=== PATIENT | female | born 1995 | race Caucasian/White ===

== ENCOUNTER 2018-10-05 20:40 | Emergency (ER) | payer OTHER ==
[2018-10-05 22:32] LABS: ABS Basophils 0 10^3/ul (0-0.2); ABS Eosinophils 0.1 10^3/ul (0-0.6); ABS Lymphocytes 1.2 10^3/ul (1.0-4.8); ABS Monocytes 0.4 10^3/ul (0-0.8); ABS Neutrophils 2.3 10^3/ul (1.5-7.7); ABS Nucleated RBC 0 10^3/ul; Eosinophil % 3.7 %; Hematocrit 45 % (35-47); Hemoglobin 15.4 g/dl (12.0-16.0); Lymphocyte % 29.3 %; Mean Corpuscular HGB Conc 34 g/dl (31-36); Mean Corpuscular Hemoglobin 32 pg (27-31); Mean Corpuscular Volume 94 fL (80-97); Mean Platelet Volume 8.4 fL (7.4-10.4); Nucleated Red Blood Cells % 0.2; Platelet Count 196 10^3/ul (150-450); Red Blood Count 4.79 10^6/ul (4.00-5.40); Red Cell Distribution Width 13 % (10.5-15)
[2018-10-05] MEDS ORDERED: NS 0.9% 1000 ML** 1,000 ML IV ONE (22:35)
[2018-10-05 22:50] LABS: ALT 13 U/L (7-52); Albumin 4.6 g/dL (3.2-5.2); Albumin/Globulin Ratio 1.6 (1-3); Alkaline Phosphatase 40 U/L (34-104); BUN/Creatinine Ratio 14.1 (8-20); Blood Urea Nitrogen 10 mg/dL (6-24); C Reactive Protein 24.77 mg/L (<8.01); CO2 Carbon Dioxide 28 mmol/L (22-32); Calcium 9.7 mg/dL (8.6-10.3); Chloride 102 mmol/L (101-111); EGFR African American 121.4 (>60); EGFR Non-African American 100.3 (>60); Globulin 2.9 g/dL (2-4); Glucose 92 mg/dL (70-100); Sodium 135 mmol/L (135-145); Total Protein 7.5 g/dL (6.4-8.9)
[2018-10-05 22:56] LABS: HCG Pregnancy < 0.60 mIU/mL
[2018-10-05 23:06] LABS: Anion Gap 5 mmol/L (2-11); Potassium 4.2 mmol/L (3.5-5.0)
[2018-10-05 23:20] LABS: AST 27 U/L (13-39)
[2018-10-05] MEDS ORDERED: Ketorolac INJ* 30 MG/ML 1 ML VIAL IV PUSH ONE (23:33)
--- NOTE | 2018-10-06 00:10 | ED ---
GI/ HPI - HPI Summary HPI Summary: 23-year-old female presenting with abdominal pain for the past 4 days. She states that it is in her epigastric and periumbilical region. She says that does not radiates anywhere. She states it is a crampy type pain. it started with constipation and is now having diarrhea. she admits to nausea but no vomiting. She states she's felt like she's had a fever. No chest pain or shortness breath. 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 She she states she has no medical conditions. No blood in her stool. She states she has no appetite. She is able to keep food down just doesn't feel like eating. No previous surgeries. no abnormal vaginal discharge. no urinary symptoms. - History of Current Complaint Chief Complaint: EDAbdPain Time Seen by Provider: 10/05/18 22:19 Stated Complaint: ABD PAIN Pain Intensity: 6 - Allergy/Home Medications Allergies/Adverse Reactions: Allergies Allergy/AdvReac Type Severity Reaction Status Date / Time No Known Allergies Allergy Verified 10/05/18 20:46 PMH/Surg Hx/FS Hx/Imm Hx Endocrine/Hematology History: Denies: Hx Anticoagulant Therapy Respiratory History: Denies: Hx Asthma Infectious Disease History: No Infectious Disease History: Denies: Traveled Outside the [place] in Last 30 Days - Family History Known Family History: Positive: Non-Contributory - Social History Alcohol Use: None Substance Use Type: Reports: None Smoking Status (MU): Never Smoked Tobacco Review of Systems Negative: Fever Negative: Chest Pain Negative: Shortness Of Breath Positive: Abdominal Pain, Diarrhea, Nausea. Negative: Vomiting All Other Systems Reviewed And Are Negative: Yes Physical Exam Triage Information Reviewed: Yes Vital Signs On Initial Exam: Initial Vitals Temp Pulse Resp BP Pulse Ox 97.9 F 82 16 125/84 96 10/05/18 20:41 10/05/18 20:41 10/05/18 20:41 10/05/18 20:41 10/05/18 20:41 Vital Signs Reviewed: Yes Appearance: Positive: Well-Appearing Skin: Positive: Warm, Dry Head/Face: Positive: Normal Head/Face Inspection Eyes: Positive: Normal, EOMI, GOPAL, Conjunctiva Clear ENT: Positive: Normal ENT inspection, Pharynx normal, TMs normal Respiratory/Lung Sounds: Positive: Clear to Auscultation, Breath Sounds Present Cardiovascular: Positive: Normal, RRR Abdomen Description: Positive: Soft, Other: - tenderness epigastric and periumblicial, neg rovsings, no rebound, nontender RLQ. Negative: McBurney's Point Tenderness Bowel Sounds: Positive: Present Musculoskeletal: Positive: Normal Neurological: Positive: Normal Psychiatric: Positive: Normal Diagnostics - Vital Signs Vital Signs Temp Pulse Resp BP Pulse Ox 10/05/18 20:41 97.9 F 82 16 125/84 96 - Laboratory Lab Results: Lab Results 10/05/18 10/05/18 Range/Units 22:24 22:24 WBC 4.0 (3.5-10.8) 10^3/ul RBC 4.79 (4.00-5.40) 10^6/ul Hgb 15.4 (12.0-16.0) g/dl Hct 45 (35-47) % MCV 94 (80-97) fL MCH 32 H (27-31) pg MCHC 34 (31-36) g/dl RDW 13 (10.5-15) % Plt Count 196 (150-450) 10^3/ul MPV 8.4 (7.4-10.4) fL Neut % (Auto) 57.0 % Lymph % (Auto) 29.3 % Becker % (Auto) 9.3 % Eos % (Auto) 3.7 % Baso % (Auto) 0.7 % Absolute Neuts (auto) 2.3 (1.5-7.7) 10^3/ul Absolute Lymphs (auto) 1.2 (1.0-4.8) 10^3/ul Absolute Monos (auto) 0.4 (0-0.8) 10^3/ul Absolute Eos (auto) 0.1 (0-0.6) 10^3/ul Absolute Basos (auto) 0 (0-0.2) 10^3/ul Absolute Nucleated RBC 0 10^3/ul Nucleated RBC % 0.2 Sodium 135 (135-145) mmol/L Potassium 4.2 (3.5-5.0) mmol/L Chloride 102 (101-111) mmol/L Carbon Dioxide 28 (22-32) mmol/L Anion Gap 5 (2-11) mmol/L BUN 10 (6-24) mg/dL Creatinine 0.71 (0.51-0.95) mg/dL Est GFR ( Amer) 121.4 (>60) Est GFR (Non-Af Amer) 100.3 (>60) BUN/Creatinine Ratio 14.1 (8-20) Glucose 92 (70-100) mg/dL Calcium 9.7 (8.6-10.3) mg/dL Total Bilirubin 0.70 (0.2-1.0) mg/dL AST 27 (13-39) U/L ALT 13 (7-52) U/L Alkaline Phosphatase 40 (34-104) U/L C-Reactive Protein 24.77 H (<8.01) mg/L Total Protein 7.5 (6.4-8.9) g/dL Albumin 4.6 (3.2-5.2) g/dL Globulin 2.9 (2-4) g/dL Albumin/Globulin Ratio 1.6 (1-3) Lipase 43 (11.0-82.0) U/L Beta HCG, Quant < 0.60 mIU/mL Result Diagrams: 10/05/18 22:24 10/05/18 22:24 Lab Statement: Any lab studies that have been ordered have been reviewed, and results considered in the medical decision making process. - Ultrasound No standard instances Ultrasound Interpretation Completed By: Radiologist Summary of Ultrasound Findings: IMPRESSION: Nonvisualized appendix with no secondary findings to suggest appendicitis. Re-Evaluation - Re-Evaluation First Eval Re-Evaluation Time: 00:10 Comment: nontender over RLQ, discussed that has classmates with similiar symptoms GIGU Course/Dx - Course Course Of Treatment: 23-year-old female presenting with abdominal pain for the past 4 days. She states that it is in her epigastric and periumbilical region. She says that does not radiates anywhere. She states it is a crampy type pain. it started with constipation and is now having diarrhea. she admits to nausea but no vomiting. She states she's felt like she's had a fever. No chest pain or shortness breath. 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 She she states she has no medical conditions. No blood in her stool. She states she has no appetite. She is able to keep food down just doesn't feel like eating. No previous surgeries. On exam tenderness periumbilically and epigastric region. No rebound. Nontender over right lower quadrant. Gallbladder ultrasound normal. Appendix not visualized. wbc normal. CRP is elevated. Patient contacted peers and they're having similar symptoms. Discussed could be the cryptosporidium but patient is unable to provide us a stool sample to test for such. We'll treat supportively. Warned if symptoms change return to ED. patient no uti symptoms now and wants to hold on antibiotic till culture. Patient understands agrees plan. - Diagnoses Differential Diagnoses - Female: Cholecystitis, Gastroenteritis (Viral), Gastroenteritis (Bacterial) Provider Diagnoses: Abdominal pain, Diarrhea Discharge - Sign-Out/Discharge Documenting (check all that apply): Patient Departure - Discharge Plan Condition: Good Disposition: HOME Patient Education Materials: Abdominal Pain (ED) Referrals: No Primary Care Phys,NOPCP [Primary Care Provider] - Additional Instructions: Can take Zofran every 6 hours as needed for nausea Drink small amounts of fluid as tolerated When able to eat follow BRAT diet: Bananas, rice, applesauce, toast Take ibuprofen or Tylenol for pain as needed every 6 hours Follow up with primary within 5 days Return to ED if develop fever that does not respond to Tylenol or ibuprofen, severe abdominal pain, or any new or worsening symptoms - Billing Disposition and Condition Condition: GOOD Disposition: Home
[2018-10-06] MEDS ORDERED: O ndansetron ODT 4MG 5TAB PRPK 4 MG PAK PO ONE (00:30)
[2018-10-06 00:39] LABS: Urine Appearance Cloudy; Urine Bacteria 1+ (Absent); Urine Bilirubin Negative (Negative); Urine Blood Negative (Negative); Urine Color Yellow; Urine Glucose Negative (Negative); Urine Ketones Trace (Negative); Urine Nitrite Negative (Negative); Urine Protein Negative (Negative); Urine Red Blood Cell Trace(0-2/hpf) (Absent); Urine Specific Gravity 1.004 (1.010-1.030); Urine Squamous Epithelial Cell Present (Absent); Urine Urobilinogen Negative (Negative); Urine White Blood Cell 3+(>20/hpf) (Absent)
[2018-10-06 00:47] VITALS: BP 111/71
[2018-10-06] MEDS ORDERED: Ondansetron ODT TAB* 4 MG PO ONE (01:00)
== END 2018-10-06 00:40 | disposition home or self-care (01) ==
LOC: ED 20:40
DX: R10.13 Epigastric pain (principal); R19.7 Diarrhea, unspecified; R10.11 Right upper quadrant pain
CPT/HCPCS: 36415; 76705; 80053; 81003; 81015; 83690; 84702; 85025; 86140; 87086; 96361; 96374; 99282; A9270-GY; J1885

== ENCOUNTER 2018-10-13 09:06 | Emergency (ER) | payer OTHER ==
[2018-10-13] MEDS ORDERED: Ketorolac INJ* 30 MG/ML 1 ML VIAL IV PUSH ONE (09:18)
--- NOTE | 2018-10-13 09:19 | ED ---
HPI Chest Pain - HPI Summary HPI Summary: This patient is a 23 year old F presenting to [facility] with a chief complaint of upper abdominal pain [employer]. Earlier this morning she said the pain radiated to her chest and after 15 mins she called EMS. She said the pain did not resolve but has lessened in severity. She rates the chest pain 7/10 in severity and that it is a sharp pain. She said she did not have a cold, but was at [facility] last week for cryptosporidium and has since resolved. She denies nausea and vomiting. She reports SOB. She states her LNMP was 3 weeks ago. - History of Current Complaint Chief Complaint: EDChestPainROMI Hx Obtained From: Patient Onset/Duration: Started Minutes Ago Timing: Constant, Lasting Minutes Initial Severity: Moderate Current Severity: Moderate Pain Intensity: 7 Pain Scale Used: 0-10 Numeric Chest Pain Location: Discrete at:, Upper Sternal Character: Sharp/Stabbing Aggravating Factor(s): Nothing Associated Signs and Symptoms: Positive: Abdominal Pain - Allergy/Home Medications Allergies/Adverse Reactions: Allergies Allergy/AdvReac Type Severity Reaction Status Date / Time No Known Allergies Allergy Verified 10/13/18 09:12 Home Medications: Home Medications Escitalopram (NF) [Lexapro 10 mg (NF)] 10 mg PO DAILY 10/13/18 [History Confirmed 10/13/18] Lubiprostone (NF) [Amitiza (NF)] 8 - 16 mcg PO BID 10/13/18 [History Confirmed 10/13/18] PMH/Surg Hx/FS Hx/Imm Hx Endocrine/Hematology History: Denies: Hx Anticoagulant Therapy Respiratory History: Denies: Hx Asthma Infectious Disease History: No Infectious Disease History: Denies: Traveled Outside the [place] in Last 30 Days - Family History Known Family History: Negative: Cardiac Disease, Hypertension, Diabetes - Social History Alcohol Use: None Substance Use Type: Reports: None Smoking Status (MU): Never Smoked Tobacco Review of Systems Positive: Chest Pain Positive: Shortness Of Breath Positive: Abdominal Pain. Negative: Vomiting, Nausea All Other Systems Reviewed And Are Negative: Yes Physical Exam - Summary Physical Exam Summary: VITAL SIGNS: Reviewed. GENERAL: Patient is a well-developed and nourished female who is lying comfortable in the stretcher. Patient is not in any acute respiratory distress. HEAD AND FACE: Normocephalic and atraumatic. EYES: PERRLA, EOMI x 2, No injected conjunctiva. EARS: Hearing grossly intact. Ear canals and tympanic membranes are WNL. MOUTH: Oropharynx within normal limits. NECK: Supple, trachea is midline, no adenopathy, no JVD. CHEST: Symmetric, no tenderness at palpation LUNGS: Clear to auscultation bilaterally. No wheezing or crackles. CVS: RRR, S1 and S2 present, no murmurs or gallops appreciated. Non- reproducible upper sternal pain. ABDOMEN: Soft. No signs of distention. Positive bowel sounds. No rebound no guarding, and no masses palpated. No abdominal bruit or pulsations. Mild epigastric tenderness EXTREMITIES: FROM in all major joints, no edema, no cyanosis or clubbing. NEURO: Alert and oriented x 3. No acute neurological deficits. Speech is normal. SKIN: Dry and warm Triage Information Reviewed: Yes Vital Signs On Initial Exam: Initial Vitals Temp Pulse Resp BP Pulse Ox 98.4 F 86 16 125/83 97 10/13/18 09:12 10/13/18 09:12 10/13/18 09:12 10/13/18 09:12 10/13/18 09:12 Vital Signs Reviewed: Yes Diagnostics - Vital Signs Vital Signs Temp Pulse Resp BP Pulse Ox 10/13/18 09:12 98.4 F 86 16 125/83 97 - Laboratory Result Diagrams: 10/13/18 09:30 10/13/18 09:30 Lab Statement: Any lab studies that have been ordered have been reviewed, and results considered in the medical decision making process. - Radiology CXR Radiology Interpretation Completed By: Radiologist Summary of Radiographic Findings: No active cardiopulmonary disease. ED Provider has reviewed this report. - CT ABD/PEL CT Interpretation Completed By: Radiologist Summary of CT Findings: 1. No evidence for acute finding. 2. Distended stomach filled with heterogeneous material, likely representing retained food materal less likely a bezoar. Recommend clinical correlation. - EKG 0929 Cardiac Rate: NL EKG Rhythm: Sinus Rhythm - [address] Segment: Normal Ectopy: None Summary of EKG Findings: No ST elevations Re-Evaluation - Re-Evaluation First Eval Re-Evaluation Time: 10:36 Comment: She is complaining of epigastric pain. Chest Pain Course/Dx - Course Assessment/Plan: Blood work without any significant abnormality, except for AST of 53. Beta hCG is less than 0.6. In the ED course the patient was given IV fluids, the patient was given total for the pain. D-dimer is 230, patient is not hypoxic, not tachycardic, and it was pretty is 0, therefore no suspicion for a PE. I was called to the room stating that the patient has morning epigastric pain. Therefore the patient was given a GI cocktail and morphine for the pain. At this time I decided to order abdominal pelvic CT to rule out pancreatitis, or any intra-abdominal pathology. Abdominal pelvic CT shows no pathology. The patients symptoms have subsided. At this point the patient is asymptomatic. The patient is hemodynamically stable alert and oriented 3. I discussed all the findings and test results with the patient. Patient was instructed to return to the emergency room immediately if any of the symptoms return or worsens. Plan of care was discussed with the patient and understands and agrees. All questions were answered at patient satisfaction. There were no further complaints or concerns. Lung exam before discharge: CTA B/L. Good air exchange. No wheezing or crackles heard. CVS: S1 and S2 present. No murmurs appreciated. Patient is alert and oriented x 3. Patient is hemodynamically stable. Patient will be discharged home with follow up PCP in the next 2-3 days - Chest Pain Differential Diagnosis/HQI/PQRI: Angina, CHF, Chest Wall, GI Disease, Lower Respiratory Infection - Diagnoses Provider Diagnoses: Atypical chest pain, Epigastric pain Discharge - Sign-Out/Discharge Documenting (check all that apply): Patient Departure - Discharge Patient Received Moderate/Deep Sedation with Procedure: No - Discharge Plan Condition: Stable Disposition: HOME Prescriptions: Omeprazole CAP (NF) [Prilosec CAP* 20 MG] 20 mg PO DAILY #20 cap. Patient Education Materials: Chest Pain (ED), Epigastric Pain (ED) Referrals: [facility] [place] [facility] [Outside] Additional Instructions: Return to ED with any new or worsening symptoms. - Billing Disposition and Condition Condition: STABLE Disposition: Home - Attestation Statements Document Initiated by Scribe: Yes Documenting Scribe: Marquis Victor Provider For Whom Scribe is Documenting (Include Credential): Denilson Handley MD Scribe Attestation: Marquis Kraus, scribed for Denilson Handley MD on 10/14/18 at 0832. Scribe Documentation Reviewed: Yes Provider Attestation: The documentation as recorded by the scribe, Marquis Victor accurately reflects the service I personally performed and the decisions made by me, Denilson Handley MD Status of Scribe Document: Viewed
[2018-10-13 09:40] LABS: ABS Basophils 0 10^3/ul (0-0.2); ABS Eosinophils 0.1 10^3/ul (0-0.6); ABS Lymphocytes 1.1 10^3/ul (1.0-4.8); ABS Monocytes 0.4 10^3/ul (0-0.8); ABS Neutrophils 1.8 10^3/ul (1.5-7.7); ABS Nucleated RBC 0 10^3/ul; Eosinophil % 4.2 %; Hematocrit 44 % (35-47); Hemoglobin 14.8 g/dl (12.0-16.0); Lymphocyte % 31.2 %; Mean Corpuscular HGB Conc 34 g/dl (31-36); Mean Corpuscular Hemoglobin 32 pg (27-31); Mean Corpuscular Volume 95 fL (80-97); Mean Platelet Volume 7.5 fL (7.4-10.4); Nucleated Red Blood Cells % 0.2; Platelet Count 302 10^3/ul (150-450); Red Blood Count 4.63 10^6/ul (4.00-5.40); Red Cell Distribution Width 13 % (10.5-15); White Blood Count 3.4 10^3/ul (3.5-10.8)
[2018-10-13 09:59] LABS: ALT 53 U/L (7-52); Albumin 4.5 g/dL (3.2-5.2); Albumin/Globulin Ratio 1.6 (1-3); Alkaline Phosphatase 49 U/L (34-104); BUN/Creatinine Ratio 10.8 (8-20); Blood Urea Nitrogen 7 mg/dL (6-24); CO2 Carbon Dioxide 25 mmol/L (22-32); Calcium 9.3 mg/dL (8.6-10.3); Chloride 106 mmol/L (101-111); Creatine Kinase 62 U/L (10-223); EGFR African American 134.4 (>60); EGFR Non-African American 111.1 (>60); Globulin 2.9 g/dL (2-4); Glucose 97 mg/dL (70-100); Magnesium 2.3 mg/dL (1.9-2.7); Sodium 138 mmol/L (135-145); Total Protein 7.4 g/dL (6.4-8.9)
[2018-10-13 10:03] LABS: CKMB ng/mL 0.5 ng/mL (0.6-6.3)
[2018-10-13 10:06] LABS: HCG Pregnancy < 0.60 mIU/mL
[2018-10-13] MEDS ORDERED: Al Hydrox/Mg Hydrox/Simet LIQ* 30 ML UDC PO ONE (10:24)
[2018-10-13] MEDS ORDERED: Al Hydrox/Mg Hydrox/Simet LIQ* 30 ML UDC ONE (10:24)
[2018-10-13] MEDS ORDERED: Lidocaine 2% VISCOUS* 15 ML UDC PO ONE (10:24)
[2018-10-13] MEDS ORDERED: Lidocaine 2% VISCOUS* 15 ML UDC ONE (10:24)
[2018-10-13] MEDS ORDERED: Morphine VIAL* 10 MG/ML 1 ML VIAL IV ONE (10:36)
[2018-10-13 11:00] LABS: TSH (Thyroid Stimulating Horm) 0.71 mcIU/mL (0.34-5.60)
[2018-10-13] MEDS ORDERED: Iohexol 300* (CONTRAST) 10 ML SDV IV ONE (11:11)
[2018-10-13 11:23] LABS: AST 62 U/L (13-39); Anion Gap 7 mmol/L (2-11); Potassium 4.3 mmol/L (3.5-5.0)
[2018-10-13 12:48] VITALS: BP 116/77
== END 2018-10-13 12:47 | disposition home or self-care (01) ==
LOC: ED 09:06
DX: R07.89 Other chest pain (principal); R10.13 Epigastric pain; R10.10 Upper abdominal pain, unspecified
CPT/HCPCS: 36415; 71046; 74177; 80053; 82550; 82553; 83605; 83735; 83880; 84443; 84484; 84702; 85025; 85379; 93005; 96374; 96375; 99283; A9270-GY; J1885; J2270; Q9967

== ENCOUNTER 2019-03-31 13:48 | Emergency (ER) | payer OTHER ==
[2019-03-31 14:01] VITALS: BP 105/67
--- NOTE | 2019-03-31 14:14 | ED ---
Skin Complaint - HPI Summary HPI Summary: Patient is a 23-year-old female who presents to the urgent care with a chief complaint of a rash in the right forearm. Patient reports that her couple days ago she was working with a cat who was positive forringworm. Now she has this rash which is itching and he has the ringworm aspect. She denies any fever chills and she has no other complaints. - History of Current Complaint Chief Complaint: UCSkin Time Seen by Provider: 03/31/19 14:05 Stated Complaint: RINGWORM Hx Obtained From: Patient Hx Last Menstrual Period: 03/30/19 Onset/Duration: Started Days Ago Pain Intensity: 0 - Allergy/Home Medications Allergies/Adverse Reactions: Allergies Allergy/AdvReac Type Severity Reaction Status Date / Time No Known Allergies Allergy Verified 03/31/19 14:01 PMH/Surg Hx/FS Hx/Imm Hx Previously Healthy: Yes Endocrine/Hematology History: Denies: Hx Anticoagulant Therapy, Hx Diabetes Cardiovascular History: Denies: Hx Hypertension Respiratory History: Denies: Hx Asthma History: Denies: Hx Renal Disease Infectious Disease History: No Infectious Disease History: Denies: Traveled Outside the [place] in Last 30 Days - Family History Known Family History: Positive: Non-Contributory Negative: Cardiac Disease, Hypertension, Diabetes - Social History Alcohol Use: None Substance Use Type: Reports: None Smoking Status (MU): Never Smoked Tobacco Review of Systems Constitutional: Negative Eyes: Negative ENT: Negative Cardiovascular: Negative Respiratory: Negative Gastrointestinal: Negative Genitourinary: Negative Musculoskeletal: Negative Positive: Rash Neurological: Negative All Other Systems Reviewed And Are Negative: Yes Physical Exam - Summary Physical Exam Summary: VITAL SIGNS: Reviewed. GENERAL: Patient is a well developed and nourished female who is lying comfortably in the stretcher. Patient is not in any acute respiratory distress. HEAD AND FACE: No signs of trauma. No ecchymosis, hematomas or skull depressions. No sinus tenderness. EYES: PERRLA, EOMI x 2, No injected conjunctiva, no nystagmus. EARS: Hearing grossly intact. Ear canals and tympanic membranes are within normal limits. MOUTH: Oropharynx within normal limits. NECK: Supple, trachea is midline, no adenopathy, no JVD, no carotid bruit, no c- spine tenderness, neck with full ROM. CHEST: Symmetric, no tenderness at palpation LUNGS: Clear to auscultation bilaterally. No wheezing or crackles. CVS: Regular rate and rhythm, S1 and S2 present, no murmurs or gallops appreciated. ABDOMEN: Soft, non-tender. No signs of distention. No rebound no guarding, and no masses palpated. Bowel sounds are normal. EXTREMITIES: FROM in all major joints, no edema, no cyanosis or clubbing. NEURO: Alert and oriented x 3. No acute neurological deficits. Speech is normal and follows commands. SKIN: Dry and warm. around the erythematous area with irregular borders. Triage Information Reviewed: Yes Vital Signs On Initial Exam: Initial Vitals Temp Pulse Resp BP Pulse Ox 98.5 F 65 16 105/67 100 03/31/19 13:57 03/31/19 13:57 03/31/19 13:57 03/31/19 13:57 03/31/19 13:57 Vital Signs Reviewed: Yes Diagnostics - Vital Signs Vital Signs Temp Pulse Resp BP Pulse Ox 03/31/19 13:57 98.5 F 65 16 105/67 100 - Laboratory Lab Statement: Any lab studies that have been ordered have been reviewed, and results considered in the medical decision making process. Course/Dx - Course Assessment/Plan: he since that the patient is living with a ringworm. Therefore I gave the patient a prescription for Ketoonazole Patient will be discharged home with follow-up with PCP. - Diagnoses Provider Diagnoses: Ringworm Discharge - Sign-Out/Discharge Documenting (check all that apply): Patient Departure All imaging exams completed and their final reports reviewed: No Studies - Discharge Plan Condition: Stable Disposition: HOME Prescriptions: Ketoconazole 2 % CREAM (NF) [Nizoral 2% CREAM (NF)] 1 applic TOPICAL BID #30 gm Patient Education Materials: Tinea Corporis (ED) Referrals: No Primary Care Phys,NOPCP [Primary Care Provider] - [facility] [place] [facility] [place]Outside] Additional Instructions: Take medications as instructed Increase your fluid intake F/U with PCP in the next 2-3 days Return to the if symptoms worsen - Billing Disposition and Condition Condition: STABLE Disposition: Home
== END 2019-03-31 14:15 | disposition home or self-care (01) ==
LOC: UCEAST 13:48
DX: B35.9 Dermatophytosis, unspecified (principal)
CPT/HCPCS: 99212; G0463